=== PATIENT | female | born 1990 | race Caucasian/White ===

== ENCOUNTER 2019-03-02 21:18 | Emergency (ER) | payer MEDICAID ==
--- NOTE | 2019-03-02 21:51 | ED Physician Chart ---
ED Chief Complaint/HPI - Patient Information Date Seen:: 03/02/19 Time Seen:: 21:46 Chief Complaint:: Low back pain History of Present Illness:: 29 yo right-handed female with family history of degenerative spine disease, had low back pain with radiating to bilateral lower extremities for 3 weeks worsened for 2 days. Her left leg pain was worse than the right. There was numbness in left foot, weakness of left lower extremity. Patient had been waken up by the pain at night. Patient took Tylenol, Motrin and other OTC medication with minimal effect. Patient did not see a PCP. Pt recalled a fall 6 years ago by sitting on her buttock. Allergies:: Allergies Allergy/AdvReac Type Severity Reaction Status Date / Time No Known Allergies Allergy Verified 03/02/19 21:28 Vitals:: Vital Signs - 8 hr 03/02/19 21:20 Temp 97.6 F HR 89 RR 18 O2 Sat % 97 ED Review of Systems - Review of Systems General/Constitutional: No fever, No chills Skin: No rash Head: No headache Eyes: No pain ENT: No nasal drainage Neck: No neck pain Cardio Vascular: No chest pain Pulmonary: No SOB GI: No nausea, No vomiting Musculoskeletal: Bone or joint pain, Back pain Neurological: No syncope, Weakness, No headache ED Past Medical History - Past Medical History Past Medical History: Other (obesity ) Social History: Smoker, No Alcohol, No Drug Use Surgical History: None Family Medical History - Family Member Mother History Unknown: Yes Other Medical History: Degenerative spine disease of mother, aunt and grandparent ED Physical Exam - Physical Examination General/Constitutional: Awake, Alert Head: Atraumatic Eyes: PERRL, EOMI Skin: No skin lesions ENMT: Nasal exam nl Neck: No nuchal rigidity Respiratory: Nl effort/Exclusion, No Wheeze/Rhonchi/Rales Cardio Vascular: RRR, No murmur, gallop, rubs, NL S1 S2 GI: No tenderness/rebounding/guarding Other Extremities comments:: Left straight leg raising test positive. Left EHL 4/5, right EHL 5/5. Other Misc comments:: Paraspinal tenderness at lumbar region. Left SI joint tenderness ED Labs/Radiology/EKG Results - Radiology Results Results: L-spine X ray: mild to moderate degenerative disease at L5-S1 level. ED Assessment - Assessment General Assessment: Lumbago Left lumbar radiculopathy Assessment/Comments:: UA, urine hCG Lumbar spine X ray Toradol 30mg IM Decadron 4mg PO (patient refused) ED Septic Shock - . Is Septic Shock (SBP<90, OR Lactate>4 mmol\L) present?: No - <6hrs of presentation: Vital Signs: Vital Signs - 8 hr 03/02/19 21:20 Temp 97.6 F HR 89 RR 18 O2 Sat % 97 ED Reassessment (Disposition) - Reassessment Reassessment Condition:: Improved - Aftercare/Follow up Instructions Notes:: F/u PCP for possible MRI lumbar spine and physical therapy. Medication Prescribed:: Gabapentin 300 mg po tid #30 Ibuprofen 800 mg po bid #14 - Patient Disposition Discharge/Transfer:: Home
[2019-03-02 22:23] LABS: URINE SOURCE MIDSTREAM
[2019-03-02 22:27] LABS: URINE BILIRUBIN NEGATIVE (NEGATIVE); URINE BLOOD NEGATIVE (NEGATIVE); URINE GLUCOSE (UA) NEGATIVE (NEGATIVE); URINE KETONE NEGATIVE (NEGATIVE); URINE LEUKOCYTE ESTERASE TRACE (NEGATIVE); URINE MICROSCOPIC INDICATED? YES; URINE NITRATE NEGATIVE (NEGATIVE); URINE PROTEIN NEGATIVE (NEGATIVE); URINE UROBILINOGEN 0.2 E.U./dL (0.2 - 1.0)
[2019-03-02 22:33] LABS: URINE CLARITY HAZY (CLEAR); URINE COLOR YELLOW
[2019-03-02 22:37] LABS: URINE RBC 0-2 /hpf (0-5)
[2019-03-02 22:38] LABS: URINE AMORPHOUS SEDIMENT MODERATE PHOSPHATES (NONE SEEN); URINE BACTERIA FEW /hpf (NONE SEEN); URINE EPITHELIAL CELLS FEW /lpf (FEW)
--- NOTE | 2019-03-03 09:05 | Diagnostic Imaging Report ---
Lumbar spine (3 views) HISTORY: Pain. Alignment is normal. Minimal narrowing of the L4-5 interspace. Minimal spur formation noted about the anterior margins of the bodies of L4-L5. No acute abnormalities. No fractures. IMPRESSION: 1. Minimal degenerative changes 2. No acute abnormalities
== END 2019-03-02 22:45 | disposition home or self-care (01) ==
LOC: ER 21:18
DX: M54.16 Radiculopathy, lumbar region (principal); F17.200 Nicotine dependence, unspecified, uncomplicated
CPT/HCPCS: 99284; 96372; 72110; 81001; 81025; J8540; J1885